=== PATIENT | female | born 1975 | race Hispanic/Latino ===

== ENCOUNTER 2017-07-14 21:52 | Emergency (ER) | payer SELFPAY ==
[2017-07-14] MEDS ORDERED: Acetaminophen 500 MG TAB ONE (22:25)
--- NOTE | 2017-07-14 22:44 | CT ---
NONCONTRAST CT HEAD: 07/14/2017 HISTORY: Headache after injury. The patient fell while rollerskating. FINDINGS: There is no evidence of a hemorrhage, acute infarction, mass effect, or midline shift. The ventricul ar system is normal in size, shape, and position. 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 The visualized paranasal sinuses and mastoid air cells are clear. The calvarial structures are intac t, and no depressed calvarial fracture is seen. IMPRESSION: No acute intracranial abnormality is demonstrated. POS: ASHISH
== END 2017-07-14 22:45 | disposition home or self-care (01) ==
LOC: NAV ERS 21:52
DX: S00.03XA Contusion of scalp, initial encounter (principal); R55 Syncope and collapse; I10 Essential (primary) hypertension; G43.909 Migraine, unspecified, not intractable, without status migrainosus; J45.909 Unspecified asthma, uncomplicated; Z87.891 Personal history of nicotine dependence; Z79.899 Other long term (current) drug therapy; V00.121A Fall from non-in-line roller-skates, initial encounter
CPT/HCPCS: 70450; 93005